=== PATIENT | female | born 1950 | race Caucasian/White ===

== ENCOUNTER → 2016-07-09 | Outpatient (CLI) | payer MEDICARE, MEDICAID ==
[~2016-07-09] MED LIST: ALPR0.5T6 PO; ATORVASTATIN CA80 MG PO; CLOP75TA PO; ESOM40CA PO; HYDR-2762 PO; HYDR12.53 PO; IOHEXOL 350 MG/ML 100ML VIAL. IV ONE; ISOS60TA2 PO; METF10002 PO; METO25TA9 PO
[2016-07-09 09:43] LABS: CREATININE 1.1 mg/dL (0.6-1.0); GFR 49.8
--- NOTE | 2016-07-09 12:43 | RAD ---
CTA of the abdomen and pelvis with bilateral lower extremity runoffs dated 07/09/[address] of the abdomen and pelvis dated 11/09/2007 for peripheral arterial disease, abnormal ABIs. Technique: Contiguous helical 1 mm axial images are obtained from the apex the diaphragm to the feet following administration of IV contrast in the arterial phase. Sagittal and coronal MIPS are obtained as are 3-D volume rendered images of the arterial tree. Nonvascular findings: Lung bases are clear. The liver, spleen, pancreas, bilateral adrenal glands, and bilateral kidneys are grossly unremarkable. No free or loculated fluid collections are seen. No pathologic lymphadenopathy is seen. Within the pelvis the urinary bladder is decompressed. No adnexal masses are seen. There is inhomogeneous opacification of large and small bowel with no bowel dilatation or focal bowel wall thickening evident. No suspicious osteoblastic or osteolytic bone lesions are identified. There is severe facet arthrosis at L5-S1 on the left, with exuberant osteophytosis possibly resulting in significant foraminal stenosis. Abdominal and pelvic Vascular findings: The aorta is nonaneurysmal. There is moderate multifocal soft and calcified atherosclerotic plaque throughout the aorta. There is a deeply ulcerated stenosis of the distal aorta just above the bifurcation, with 50% luminal narrowing. The celiac artery is widely patent. Superior mesenteric artery is also widely patent. Single left renal artery is widely patent with only mild atherosclerotic disease. There are 2 right renal arteries, the largest which is most cephalic. This dominant right renal artery is notable for patency of its ostium with a short segment moderate soft luminal stenosis approximately 1 cm distal to the ostium. The accessory inferior right renal artery is widely patent. The inferior mesenteric artery is occluded at its origin. Right lower extremity vascular findings: There is moderate atherosclerotic narrowing of the right common iliac artery, with greater than 50% stenosis. The origin of the hypogastric artery on the right is occluded, with rapid reconstitution. Multiple atherosclerotic stenoses are seen throughout the reconstituted hypogastric artery. There is extensive atherosclerotic disease throughout the external iliac artery resulting in tandem areas of severe stenosis. No aneurysms or occlusions are seen within the right iliac arteries.. The right common femoral, profunda femoral, and superficial femoral arteries are widely patent. There is mild atherosclerotic disease in the distal SFA. There is in-line flow to a patent popliteal artery, with a focal area of 50% narrowing at the knee joint. There is an intact three-vessel runoff to the foot with minimal atherosclerotic disease. Left lower extremity vascular findings: Left common iliac artery demonstrates moderate multifocal atherosclerosis with no clinically significant stenosis. There is a high-grade stenosis of the ostium of the left hypogastric artery, with moderate diffuse atherosclerosis elsewhere in this distribution. There is also 50% ostial stenosis of the left external iliac artery, as well as long segment atherosclerotic disease resulting in 50-60% stenosis throughout the proximal portion of this vessel. There is greater than 70% stenosis focally in the distal common femoral artery, and 95-100% densely calcified ostial stenosis of the profunda femoral artery, with rapid reconstitution. The left SFA is patent throughout, with moderate long segment patch atherosclerotic disease diffusely. No focal stenoses. The left popliteal artery is also patent, and similar to the contralateral side, there are 2 tandem moderate to severe focal stenoses near the level of the knee joint. The tibial peroneal trunk, and runoff vessels are all widely patent with minimal atherosclerotic disease. Impression: 1. Ulcerated soft atherosclerotic plaque involving the distal aorta resulting in approximately 50% stenosis. 2. Moderate to severe and likely clinically significant stenoses present within the right common iliac and external iliac artery, as well as within the left external iliac and common femoral artery. 2. Occluded right hypogastric artery, and moderate to severe ostial stenosis of the left hypogastric artery. 3. Subtotal or total occlusion of the proximal left profunda femoral artery over short segment. 4. Moderate multifocal atherosclerosis involving the SFAs bilaterally, with no focal significant stenoses. 5. Bilateral mid popliteal stenoses, likely greater than 50%. 6. Intact 3 vessel runoffs bilaterally. 7. Severe facet arthrosis at the left L5-S1 junction, with associated foraminal stenosis. Correlate clinically. 8. Moderate proximal stenosis involving the dominant right renal artery.
== END | disposition home or self-care (01) ==
LOC: CT 09:01
PROVIDERS: ATTEND Family Medicine
DX: R94.39 Abnormal result of other cardiovascular function study (principal); I70.0 Atherosclerosis of aorta; M48.07 Spinal stenosis, lumbosacral region; M47.897 Other spondylosis, lumbosacral region; I73.89 Other specified peripheral vascular diseases
CPT/HCPCS: 36415; 75635; 82565; Q9967

== ENCOUNTER → 2017-06-08 | Outpatient (CLI) | payer BC, MEDICAID ==
[~2017-06-08] MED LIST changes: +ASPI81TA50 PO; +FLUT1DIS5 IH; +HYDR-963 PO; +IOHEXOL 180 MG/ML 10 ML VIAL. IT ONE; -IOHEXOL 350 MG/ML 100ML VIAL. IV ONE; +IPRA4AER IH; +IRON150C11 PO; +METF-620 PO; -METF10002 PO; +METF500T4 PO; +METO-239 PO; -METO25TA9 PO; +NITR4.1S TL; +VARE1TAB21 PO
[2017-06-08 08:43] LABS: INR 0.9 (0.8-1.1); PROTHROMBIN TIME PATIENT 11.4 SEC (11.7-14.0)
[2017-06-08 09:40] LABS: HEMATOCRIT 36.6 % (36.0-47.0); HEMOGLOBIN 11.8 g/dL (12.0-15.5); RED BLOOD COUNT 4.12 x10^6/uL (3.50-5.40); RED CELL DISTRIBUTION WIDTH 15.5 % (11.5-14.5)
[2017-06-08 10:35] VITALS: BP 129/68
--- NOTE | 2017-06-08 11:03 | RAD ---
Lumbar spine myelogram Indication: Spinal stenosis. Low back pain radiating down both thorax. Technique: Informed consent was obtained after explaining risks and benefits of the procedure. L2 level was chosen for needle insertion. The skin was prepped and draped using the usual sterile procedure. 22-gauge spinal needle was introduced under fluoroscopy guidance. The positioning of the tip of the needle in the spinal canal was confirmed with visualization of CSF. 10mL of Omnipaque 180 was injected through the needle. 1% lidocaine was used for local anesthesia. Total fluoroscopy time of 1 minute. Findings: Prompt opacification of the lumbar spinal canal was observed without significant stenosis Impression: Uncomplicated lumbar spine myelography. Patient left the fluoroscopy suite for CT scan in stable position. Postprocedure instructions were given to the patient.
--- NOTE | 2017-06-08 11:16 | RAD ---
CT lumbar spine with intrathecal contrast Indication: Lumbar spinal stenosis. Low back pain with radiating down to the both legs. Technique: CT lumbar spine with intrathecal contrast with multiplanar reformats. Comparison: None Findings: There are 5 lumbar vertebral bodies. Lumbar spine is in normal anatomic alignment. No intervertebral disc space narrowing or endplate sclerosis. No lytic or blastic osseous lesions. The conus ends at the level of L1-L2 disc. The cauda equina nerve roots are normal in appearance. Segmental analysis: T12-L1: No disc bulge or herniation. No significant facet arthropathy. No neural foramina narrowing or spinal canal stenosis. L1-L2: No disc bulge or herniation. Mild right facet arthropathy. No neuroforaminal narrowing or spinal canal stenosis. L2-L3: No disc bulge or herniation. Mild bilateral facet arthropathy. No spinal canal stenosis or neural foramina narrowing. L3-L4: Mild circumferential disc bulge with annular calcifications flattening anterior thecal sac. Mild bilateral facet arthropathy. Mild left ligamentum flavum thickening. The combination of these findings cause mild narrowing of spinal canal stenosis measuring 1 cm in AP dimension. Mild to moderate bilateral neural foramina narrowing. L4-L5: No disc bulge or herniation. Mild left facet arthropathy. No neural foramina narrowing or spinal canal stenosis. L5-S1: No disc bulge or herniation. Severe left and moderate right facet arthropathy. No neural foramina narrowing or spinal canal stenosis. Significant atherosclerotic disease noted of the abdominal aorta. Bilateral aortobiiliac grafts noted. Impression: 1. No significant spinal canal stenosis. 2. Mild to moderate neural foramina narrowing at L3-L4. PQRS Compliance Statement: One or more of the following individualized dose reduction techniques were utilized for this examination: 1. Automated exposure control 2. Adjustment of the mA and/or kV according to patient size 3. Use of iterative reconstruction technique
[2017-06-08 12:00] VITALS: BP 132/64
== END | disposition home or self-care (01) ==
LOC: RAD 07:21
PROVIDERS: ATTEND Family Medicine
DX: M48.061 Spinal stenosis, lumbar region without neurogenic claudication (principal); I70.0 Atherosclerosis of aorta
CPT/HCPCS: 36415; 72132; 72265; 85027; 85610

== ENCOUNTER → 2017-06-23 | Outpatient (CLI) | payer BC, MEDICAID | END | disposition home or self-care (01) | LOC: PNCL 09:51 | DX: M54.5 Low back pain (principal); M79.604 Pain in right leg; M79.605 Pain in left leg; E11.51 Type 2 diabetes mellitus with diabetic peripheral angiopathy without gangrene; I10 Essential (primary) hypertension; I25.2 Old myocardial infarction; J44.9 Chronic obstructive pulmonary disease, unspecified; K21.9 Gastro-esophageal reflux disease without esophagitis; F17.210 Nicotine dependence, cigarettes, uncomplicated; Z85.3 Personal history of malignant neoplasm of breast; Z95.1 Presence of aortocoronary bypass graft; Z99.81 Dependence on supplemental oxygen; Z79.84 Long term (current) use of oral hypoglycemic drugs | CPT/HCPCS: G0463 ==

== ENCOUNTER → 2017-08-19 | Day surgery (SDC) | payer BC, MEDICAID ==
[~2017-08-19] MED LIST changes: -ALPR0.5T6 PO; -ASPI81TA50 PO; -ATORVASTATIN CA80 MG PO; -CLOP75TA PO; -ESOM40CA PO; -FLUT1DIS5 IH; -HYDR-2762 PO; -HYDR-963 PO; -HYDR12.53 PO; -IOHEXOL 180 MG/ML 10 ML VIAL. IT ONE; -IPRA4AER IH; -IRON150C11 PO; -ISOS60TA2 PO; +LIDOCAINE 1% PF 2 ML VIAL. ID; +LIDOCAINE 2% PF Vial for OR 5 ML VIAL.; -METF-620 PO; -METF500T4 PO; -METO-239 PO; +MIDAZOLAM HCL/PF 2 MG/2 ML VIAL. IV; -NITR4.1S TL; +PROPOFOL 20 ML IV; -VARE1TAB21 PO; +fentaNYL PF VIAL 100 MCG/2 ML VIAL IV
[2017-08-19] MEDS: IV RINGERS,LACTATED 1000ML 1,000 ML IV (08:11)
== END ==
LOC: ENDOS 07:32
DX: K57.30 Diverticulosis of large intestine without perforation or abscess without bleeding (principal); K64.0 First degree hemorrhoids; F17.210 Nicotine dependence, cigarettes, uncomplicated; I25.2 Old myocardial infarction; I25.119 Atherosclerotic heart disease of native coronary artery with unspecified angina pectoris; I73.9 Peripheral vascular disease, unspecified; E78.00 Pure hypercholesterolemia, unspecified; K21.9 Gastro-esophageal reflux disease without esophagitis; M19.90 Unspecified osteoarthritis, unspecified site; F41.9 Anxiety disorder, unspecified; E11.9 Type 2 diabetes mellitus without complications; Z85.828 Personal history of other malignant neoplasm of skin; Z79.84 Long term (current) use of oral hypoglycemic drugs; Z79.82 Long term (current) use of aspirin; Z79.01 Long term (current) use of anticoagulants; Z98.42 Cataract extraction status, left eye; Z98.41 Cataract extraction status, right eye; Z98.890 Other specified postprocedural states; Z95.5 Presence of coronary angioplasty implant and graft; Z95.1 Presence of aortocoronary bypass graft; Z86.010 Personal history of colon polyps; Z90.49 Acquired absence of other specified parts of digestive tract; Z87.01 Personal history of pneumonia (recurrent); Z85.3 Personal history of malignant neoplasm of breast
CPT/HCPCS: 45378; J2704

== ENCOUNTER → 2017-10-29 | Outpatient (CLI) | payer BC, MEDICAID ==
[~2017-10-29] MED LIST changes: +CONTRAST GIVEN MC; -LIDOCAINE 1% PF 2 ML VIAL. ID; -LIDOCAINE 2% PF Vial for OR 5 ML VIAL.; -MIDAZOLAM HCL/PF 2 MG/2 ML VIAL. IV; -PROPOFOL 20 ML IV; -fentaNYL PF VIAL 100 MCG/2 ML VIAL IV
[2017-10-29] MEDS: IOHEXOL 300 MG/ML 100ML VIAL. IV (12:16)
[2017-10-29] MEDS: IOHEXOL 240 MG/ML 50ML VIAL. PO (12:16)
== END | disposition home or self-care (01) ==
LOC: MAMMO 10:25
DX: Z12.31 Encounter for screening mammogram for malignant neoplasm of breast (principal); K43.9 Ventral hernia without obstruction or gangrene; Z85.3 Personal history of malignant neoplasm of breast
CPT/HCPCS: 74177; 77063; 77067; Q9966; Q9967

== ENCOUNTER → 2017-11-02 | Outpatient (CLI) | payer BC, MEDICAID | END | disposition home or self-care (01) | LOC: US 10:22 | DX: R92.0 Mammographic microcalcification found on diagnostic imaging of breast (principal) | CPT/HCPCS: 77065 ==

== ENCOUNTER → 2020-01-24 | Outpatient (CLI) | payer BC, MEDICAID ==
[2017-08-19 10:10] VITALS: BP 124/55
[~2020-01-24] MED LIST changes: +ALPR0.5T6 PO; +ASPI81TA50 PO; +ATORVASTATIN CA80 MG PO; +CLOP75TA PO; -CONTRAST GIVEN MC; +ESOM40CA PO; +FLUT1DIS5 IH; +HYDR-2765 PO; +HYDR-3135 PO; +HYDR12.575 PO; +IPRA4AER IH; +IRON150C11 PO; +ISOS60TA2 PO; +LISI10TA2 PO; +METF10007 PO; +METF500T16 PO; +METO-239 PO; +NITR4.1S2 TL; +VARE1TAB21 PO
--- NOTE | 2020-01-24 13:34 | RAD ---
DATE: 01/24/2020 8:10 AM EXAM: MAMMO ANDRE SCREENING BILATERAL HISTORY: Screening COMPARISON: 10/29/2017 Bilateral CC and MLO views of the breasts were performed. Bilateral breast tomosynthesis was performed in CC and MLO projections. This study was interpreted with the benefit of Computerized Aided Detection (CAD). FINDINGS: Breast Density: HETERO The breast parenchyma Is heterogeneously dense, which could reduce sensitivity of mammography. Breast parenchyma level C No suspicious masses, microcalcifications or architectural distortion is present to suggest malignancy in either breast. The visualized axillae are unremarkable. IMPRESSION: No mammographic evidence of malignancy. BI-RADS CATEGORY: 1 NEGATIVE RECOMMENDED FOLLOW-UP: 12M 12 MONTH FOLLOW-UP Annual screening mammography is recommended, unless clinically indicated sooner based on symptoms or change in physical exam. PQRS compliance statement: Patient information was entered into a reminder system with a target due date 01/24/2021 for the next mammogram. Mammography is a sensitive method for finding small breast cancers, but it does not detect them all and is not a substitute for careful clinical examination. A negative mammogram does not negate a clinically suspicious finding and should not result in delay in biopsying a clinically suspicious abnormality. "Our facility is accredited by the [employer] Mammography Program."
== END | disposition home or self-care (01) ==
LOC: MAMMO 08:02
PROVIDERS: ATTEND Family Medicine
DX: Z12.31 Encounter for screening mammogram for malignant neoplasm of breast (principal)
CPT/HCPCS: 77063; 77067